=== PATIENT | male | born 1975 | race Hispanic/Latino ===

== ENCOUNTER 2020-04-18 14:26 | Emergency (ER) | payer OTHER ==
[2020-04-18 15:11] LABS: BASOPHILS % (AUTO) 0.8 % (0.0-5.0); HEMATOCRIT 30.9 % (42-54); LYMPHOCYTES % (AUTO) 15.5 % (21.0-51.0); MEAN CORPUSCULAR HEMOGLOBIN 35.3 pg (27.0-33.0); MEAN CORPUSCULAR HGB CONC 33.7 g/dL (32.0-36.0); MEAN CORPUSCULAR VOLUME 104.7 fL (79-99); MONOCYTES % (AUTO) 12.6 % (3.0-13.0); NEUTROPHILS % (AUTO) 66.9 % (40.0-77.0); PLATELET COUNT (AUTO) 84 K/uL (130-400); RED BLOOD CELL COUNT(AUTO) 2.95 MIL/uL (4.50-6.20); RED CELL DISTRIBUTION WIDTH 15.3 % (11.0-15.5); WHITE BLOOD COUNT (AUTO) 4.8 K/uL (4.8-10.8)
[2020-04-18 15:29] LABS: ALBUMIN 2.6 g/dL (3.5-5.0); BILIRUBIN,TOTAL 3.8 mg/dL (0.2-1.0); CREATININE 1.4 mg/dL (0.5-1.5); POTASSIUM 3.4 mmol/L (3.5-5.1); TOTAL PROTEIN, SERUM 8.3 g/dL (6.0-8.3)
[2020-04-18] MEDS ORDERED: INSULIN HUMULIN R 100 UNIT/ML 3ML ONE (15:58)
[2020-04-18 16:08] LABS: B-TYPE NATRIURETIC PEPTIDE 487 pg/mL (0-100)
== END 2020-04-18 16:26 | disposition home or self-care (01) ==
LOC: EDH 14:26 → EEVIPCON 14:26 → EDH 16:26
DX: E11.65 Type 2 diabetes mellitus with hyperglycemia (principal); K70.9 Alcoholic liver disease, unspecified; E87.6 Hypokalemia
CPT/HCPCS: 36415; 80053; 83880; 85025; 96372; 99283; J1815